=== PATIENT | female | born 1985 | race American Indian/Alaskan Native ===

== ENCOUNTER 2020-12-19 12:05 | Outpatient (CLI) | payer OTHER ==
[2020-12-19] MEDS ORDERED: LACTATED RINGERS 1,000 ML IV SCH (13:00)
[2020-12-19 13:06] VITALS: BP 125/76
[2020-12-19 13:19] LABS: Bacteria,Urine 1+ /HPF (Negative); Bilirubin,Urine NEG (Negative); Blood,Urine NEG (Negative); Color,Urine Yellow (Yellow); Mucus,Urine FEW /HPF; Protein,Urine <15 mg/dL mg/dL (Negative); Urobilinogen,Urine < 2.0 mg/dL (<2.0)
--- NOTE | 2020-12-19 14:55 | Event Note ---
Date: 12/19/20 (pt here in Triage "I just don't feel right.") FHR cat 1 @ ctx recorded for entire time in Triage. SVE closed, long, OOP. Pt's SO voices that pt is very stressed/worrying about her mom. Pt encouraged to hydrate, rest, FKC,Call with ctx, ELIERF, SARA. Reinatakirill po @ d/c. Keep next margaux appt. All concerns addressed.
== END 2020-12-19 15:27 | disposition home or self-care (01) ==
LOC: TRG 12:05 → APU 12:07 → TRG 15:27
PROVIDERS: ATTEND Obstetrics & Gynecology
DX: O26.893 Other specified pregnancy related conditions, third trimester (principal); R10.30 Lower abdominal pain, unspecified; Z3A.33 33 weeks gestation of pregnancy
CPT/HCPCS: 59025; 81001; 96360; 96361; J7120; Q0177

== ENCOUNTER 2020-12-29 16:29 | Outpatient (CLI) | payer OTHER ==
[2020-12-29 19:29] VITALS: BP 125/70
--- NOTE | 2020-12-29 19:45 | Ultrasound Report ---
ULTRASOUND OBSTETRIC LIMITED ULTRASOUND BIOPHYSICAL PROFILE INDICATION / CLINICAL INFORMATION: decrease movement. Clinical Gestational Age (GA) in weeks, days: 84 weeks 3 days TECHNIQUE: Transabdominal. COMPARISON: None available. FINDINGS: BREATHING MOVEMENT = 2 GROSS BODY MOVEMENT = 2 TONE = 2 QUALITATIVE AMNIOTIC FLUID VOLUME = 2 TOTAL BIOPHYSICAL SCORE = 8/8 HEART RATE (beats per minute): 155 AMNIOTIC FLUID INDEX (cm) = 8 cm (normal = 7-24 cm) PRESENTATION: Cephalic. ADDITIONAL FINDINGS: None. IMPRESSION: 1. Biophysical Score = 8/8 2. Single viable IUP in a cephalic presentation. Signer Name: Sammi Carroll MD Signed: 12/29/2020 7:41 PM Workstation Name: [id number]
[2020-12-29] MEDS ORDERED: LACTATED RINGERS 500 ML IV ONE (20:04)
== END 2020-12-29 20:15 | disposition home or self-care (01) ==
LOC: TRG 16:29 → APU 16:48 → TRG 20:15
PROVIDERS: ATTEND Obstetrics & Gynecology
DX: O36.8130 Decreased fetal movements, third trimester, not applicable or unspecified (principal); Z3A.34 34 weeks gestation of pregnancy
CPT/HCPCS: 59025; 76815; 76819